=== PATIENT | male | born 1985 | race Caucasian/White ===

== ENCOUNTER 2017-12-25 02:16 | Observation (INO) | payer BC ==
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
[2017-12-25] MEDS ORDERED: SODIUM CHLORIDE 0.9% 1,000 ML IV ONE ×3 (02:51→03:53)
[2017-12-25 03:14] LABS: Appearance,Urine Clear (Clear); Bacteria,Urine Rare /hpf; Bilirubin,Urine Negative (Negative); Blood,Urine Moderate (Negative); Color,Urine Light Yellow; Glucose,Urine (UA) Negative (Negative); Ketones,Urine Trace (Negative); Leukocyte Esterase,Urine Negative (Negative); Nitrite,Urine Negative (Negative); Protein,Urine 1+ (Negative); RBC,Urine 10 /hpf (0-5); Specific Gravity,Urine 1.011 (1.001-1.035); Urobilinogen,Urine <2.0 mg/dL (<2.0); WBC,Urine 1 /hpf (0-5)
[2017-12-25 03:19] LABS: Basophils # (A) 0.1 k/uL (0-0.2); Basophils % (A) 1 %; Eosinophils # (A) 0.2 k/uL (0-0.7); Eosinophils % (A) 2 %; HCT 47.7 % (39.0-53.0); HGB 15.7 gm/dL (13.0-17.5); Lymphocytes # (A) 1.7 k/uL (1.0-4.8); Lymphocytes % (A) 23 %; MCH 30.2 pg (25.0-35.0); MCV 91.3 fL (80.0-100.0); Mean Platelet Volume 7.1; Monocytes # (A) 0.5 k/uL (0-1.0); Monocytes % (A) 7 %; Neutrophils # (A) 4.5 k/uL (1.3-7.7); Neutrophils % (A) 63 %; Platelet Count 218 k/uL (150-450); RBC 5.22 m/uL (4.30-5.90); RDW 12.9 % (11.5-15.5); WBC 7.1 k/uL (3.8-10.6)
[2017-12-25 03:24] LABS: ALT 40 U/L (21-72); AST 39 U/L (17-59); Acetaminophen <10.0 ug/mL; Albumin 4.4 g/dL (3.5-5.0); Alkaline Phosphatase 58 U/L (38-126); Anion Gap 12 mmol/L; Blood Urea Nitrogen 15 mg/dL (9-20); Calcium 8.8 mg/dL (8.4-10.2); Carbon Dioxide 20 mmol/L (22-30); Chloride 105 mmol/L (98-107); Glucose 109 mg/dL (74-99); Salicylate <1.0 mg/dL; Sodium 137 mmol/L (137-145); Total Bilirubin 1.3 mg/dL (0.2-1.3); Total Protein 7.7 g/dL (6.3-8.2)
[2017-12-25 03:24] LABS: Amphetamine Screen,Urine Not Detected (NotDetected); Barbiturate Screen,Urine Not Detected (NotDetected); Benzodiazepines Screen,Urine Not Detected (NotDetected); Cocaine Screen,Urine Not Detected (NotDetected); Methadone Screen, Urine Not Detected (NotDetected); Opiate Screen,Urine Not Detected (NotDetected); Oxycodone Screen, Urine Not Detected (NotDetected); Phencyclidine Screen,Urine Not Detected (NotDetected); Tricyclic Antidepressant,Urine Not Detected (NotDetected); Urn Cannabinoid Scrn Not Detected (NotDetected)
[2017-12-25 03:25] LABS: Potassium 4.5 mmol/L (3.5-5.1)
--- NOTE | 2017-12-25 03:33 | XR ---
EXAMINATION TYPE: XR chest 2V DATE OF EXAM: 12/25/2017 COMPARISON: NONE HISTORY: Altered mental status TECHNIQUE: Frontal and lateral views of the chest are obtained. FINDINGS: Heart and mediastinum are normal. Lungs are clear. Diaphragm is normal. Bony thorax is int act. There are chest leads. IMPRESSION: Normal chest.
--- NOTE | 2017-12-25 03:47 | CT ---
EXAMINATION TYPE: CT brain wo con DATE OF EXAM: 12/25/2017 COMPARISON: None HISTORY: AMS CT DLP: 1117.80 mGycm. Automated Exposure Control for Dose Reduction was Utilized. TECHNIQUE: CT scan of the head is performed without contrast. Ventricles of normal size. There is no mass effect nor midline shift. There is no sign of intracrania l hemorrhage. The calvarium is intact. IMPRESSION: Negative head CT scan.
[2017-12-25] MEDS ORDERED: NALOXONE 0.4 MG/ML 1 ML VIAL IV PRN (03:56)
[2017-12-25] MEDS ORDERED: levETIRAcetam IV 1,000 MG in SALINE 1 100ML.BAG IVPB STA (03:59)
[2017-12-25] MEDS ORDERED: LORazepam 2 MG/ML INJ IV PRN (03:59)
[2017-12-25] MEDS: SODIUM CHLORIDE 0.9% 1,000 ML IV SCH ×5 (04:26→17:10)
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
[2017-12-25 15:37] VITALS: BMI 25.8
--- NOTE | 2017-12-25 16:08 | P.HPIM ---
History of Present Illness 32-year-old gentleman came in for possible seizure-like activity patient had couple drinks outside came home and went upstairs and family heard a fall after which the patient was found to be unresponsive with old eyes possible tongue biting no significant seizure-like activity. Patient was unresponsive throughout the him aside after he woke up patient appeared to be confused no history of seizures past CAT scan of the head did not show any significant abnormality patient is being admitted for possible seizures patient denied any recent drug use denying dysuria cough runny nose. Serum alcohol levels are 0 upon arrival to ER. Patient had altered mental status was given Versed by EMS. Patient is normal alert oriented 3 when I evaluated the patient although doesn't remember the episode family members were present at bedside was able to give me the detailed history patient appears to have had tongue bite no loss of bowel or bladder continence. EEG will be obtained neurology was consulted Review of Systems REVIEW OF SYSTEMS: CONSTITUTIONAL: No fever, no malaise, no fatigue. HEENT: No recent visual problems or hearing problems. Denied any sore throat. CARDIOVASCULAR: No chest pain, orthopnea, PND, no palpitations, no syncope. PULMONARY: No shortness of breath, no cough, no hemoptysis. GASTROINTESTINAL: No diarrhea, no nausea, no vomiting, no abdominal pain. Normoactive bowel sounds. NEUROLOGICAL: No headaches, no weakness, no numbness. Patient denied any aura- like symptoms before the seizure HEMATOLOGICAL: Denies any bleeding or petechiae. GENITOURINARY: Denies any burning micturition, frequency, or urgency. MUSCULOSKELETAL/RHEUMATOLOGICAL: Denies any joint pain, swelling, or any muscle pain. ENDOCRINE: Denies any polyuria or polydipsia. The rest of the 14-point review of systems is negative. Past Medical History Past Medical History: No Reported History History of Any Multi-Drug Resistant Organisms: None Reported Past Surgical History: No Surgical Hx Reported Past Psychological History: No Psychological Hx Reported, Unable to Obtain Smoking Status: Never smoker Past Alcohol Use History: Occasional Past Drug Use History: None Reported Medications and Allergies Home Medications Medication Instructions Recorded Confirmed Type No Known Home Medications 12/25/17 12/25/17 History Allergies Allergy/AdvReac Type Severity Reaction Status Date / Time No Known Allergies Allergy Verified 12/25/17 07:23 Physical Exam Vitals: Vital Signs Temp Pulse Pulse Resp BP BP Pulse Ox 12/25/17 15:43 98.0 F 98 20 130/80 98 12/25/17 11:00 86 17 92/62 95 12/25/17 10:00 90 16 106/55 92 L 12/25/17 07:34 101 H 18 107/66 96 12/25/17 06:07 98.4 F 103 H 14 115/76 93 L 12/25/17 06:00 107 H 16 105/63 94 L 12/25/17 05:00 28 H 126/71 97 12/25/17 04:19 98.0 F 20 98 12/25/17 04:00 109 H 22 140/78 98 12/25/17 03:00 114 H 22 124/75 100 12/25/17 02:37 111 H 20 124/75 100 12/25/17 02:31 97.6 F 111 H 18 124/75 95 Intake and Output 12/25/17 12/25/17 12/25/17 06:59 14:59 22:59 Output Total 675 1100 Balance -675 -1100 Output: Urine 675 1100 Other: # Voids 2 Weight 81.647 kg PHYSICAL EXAMINATION: GENERAL: The patient is alert and oriented x3, not in any acute distress. Well developed, well nourished. HEENT: Pupils are round and equally reacting to light. EOMI. No scleral icterus. No conjunctival pallor. Normocephalic, atraumatic. No pharyngeal erythema. No thyromegaly. CARDIOVASCULAR: S1 and S2 present. No murmurs, rubs, or gallops. PULMONARY: Chest is clear to auscultation, no wheezing or crackles. ABDOMEN: Soft, nontender, nondistended, normoactive bowel sounds. No palpable organomegaly. MUSCULOSKELETAL: No joint swelling or deformity. EXTREMITIES: No cyanosis, clubbing, or pedal edema. NEUROLOGICAL: Gross neurological examination did not reveal any focal deficits. SKIN: No rashes. Results CBC & Chem 7: 12/25/17 02:25 12/25/17 02:25 Labs: Abnormal Lab Results - Last 24 Hours (Table) 12/25/17 12/25/17 12/25/17 Range/Units 02:25 02:25 02:40 Carbon Dioxide 20 L (22-30) mmol/L Glucose 109 H (74-99) mg/dL Plasma Lactic Acid [place] 6.2 H* (0.7-2.0) mmol/L Urine Protein 1+ H (Negative) Urine Ketones Trace H (Negative) Urine Blood Moderate H (Negative) Urine RBC 10 H (0-5) /hpf Urine Bacteria Rare H (None) /hpf Thrombosis Risk Factor Assmnt - Choose All That Apply Any of the Below Risk Factors Present?: No Other Risk Factors: No Other congenital or acquired thrombophilia - If yes, enter type in comment: No Thrombosis Risk Factor Assessment Level: Very Low Risk Assessment and Plan Plan: -Possibility of new onset seizure: Patient was started on Keppra in ER which will be continued and as needed Ativan. Patient will undergo EEG neurology was consulted seizure precautions neurochecks. -Lactic acidosis secondary to seizure continue with IV fluids repeated lactic acid is essentially within normal limits Sinus tachycardia improved now secondary to seizure
[2017-12-26] MEDS: SODIUM CHLORIDE 0.9% 1,000 ML IV SCH ×8 (00:20→22:00)
--- NOTE | 2017-12-26 10:00 | P.DS ---
Providers Date of admission: 12/25/17 04:00 Attending physician: Jane Jamison Consults: 12/25/17 03:58 Consult Physician Urgent Consulting Provider: Raphael Benedict Consult Reason/Comments: new seizure Do you want consulting provider notified?: Yes, Notify in am Primary care physician: Stated None Hospital Course: 33-year-old admitted for possible seizures patient will undergo EEG feces positive patient will go home on antiseizure medications. Once the EEG is done and neurology clears and patient will be discharged today. If EEG is negative probably will not require any antiseizure medications. No episodes of seizures here. Patient the wasn't a lot of stress which may have precipitated the present episode no history of seizures in the past. PHYSICAL EXAMINATION: GENERAL: The patient is alert and oriented x3, not in any acute distress. Well developed, well nourished. HEENT: Pupils are round and equally reacting to light. EOMI. No scleral icterus. No conjunctival pallor. Normocephalic, atraumatic. No pharyngeal erythema. No thyromegaly. CARDIOVASCULAR: S1 and S2 present. No murmurs, rubs, or gallops. PULMONARY: Chest is clear to auscultation, no wheezing or crackles. ABDOMEN: Soft, nontender, nondistended, normoactive bowel sounds. No palpable organomegaly. MUSCULOSKELETAL: No joint swelling or deformity. EXTREMITIES: No cyanosis, clubbing, or pedal edema. NEUROLOGICAL: Gross neurological examination did not reveal any focal deficits. SKIN: No rashes. For the chronic medical problems hospitalization course please refer to my HPI from yesterday Plan - Discharge Summary Discharge Rx Participant: Yes New Discharge Prescriptions: No Action No Known Home Medications Discharge Medication List No Known Home Medications 12/25/17 [History] Follow up Appointment(s)/Referral(s): Edmar Walters MD [REFERRING] - 1 Week (Unable to get through. Please call to schedule appointment) Discharge Disposition: HOME SELF-CARE
--- NOTE | 2017-12-26 16:58 | EEG ---
ELECTROENCEPHALOGRAM REPORT DATE OF SERVICE: 12/26/2017. REASON FOR TESTING: Seizure. DESCRIPTION OF THE PROCEDURE: This EEG was performed using a 21 channel digital electroencephalograph, following international 10-20 system. DESCRIPTION OF THE RECORDING: From the beginning of the tracing, with patient's eyes closed, the background rhythm was mostly consisting of 10 Hz alpha frequency in the posterior occipital leads. No obvious asymmetry is seen. Photic stimulation was performed with a good driving response seen. No pathological waves were elicited. Hyperventilation was not performed. Occasional movement and muscle artifacts are seen. The patient does reach stage II of sleep during the tracing and occasional sleep spindles are seen. No epileptiform discharges were seen. Occasional phase reversals are seen. Occasional dysregulation is noticed. His EKG lead showed a regular rate and rhythm. INTERPRETATION: This awake and asleep EEG is abnormal due to the presence of occasional dysregulation seen. There was also occasional phase reversal seen. These findings may be consistent with a reduced seizure threshold. No obvious generalized epileptic activity is seen. Clinical correlation is recommended. MMMARINA / AKBARN: [id number] /
[2017-12-26] MEDS: levETIRAcetam IV 750 MG in SODIUM CHLORIDE 0.9% 100 ML IVPB SCH (19:57)
[2017-12-27 08:29] VITALS: RESP 16; TEMP 97.7
[2017-12-27] MEDS: levETIRAcetam IV 750 MG in SODIUM CHLORIDE 0.9% 100 ML IVPB SCH (08:41)
[2017-12-27] MEDS: SODIUM CHLORIDE 0.9% 1,000 ML IV SCH (08:47)
--- NOTE | 2017-12-27 11:04 | P.DS ---
Providers Date of admission: 12/25/17 04:00 Attending physician: Jane Jamison Consults: 12/25/17 03:58 Consult Physician Urgent Consulting Provider: Raphael Benedict Consult Reason/Comments: new seizure Do you want consulting provider notified?: Yes, Notify in am Primary care physician: Stated None Hospital Course: Patient was admitted for possible seizure. Patient underwent EEG EEG yesterday which is inconclusive appears to have suppressed waveform of seizures patient is on Keppra at that time still on Keppra. Neurology is recommending another EEG today and antiseizure medication recommendations as per them. Patient will be discharged later today. PHYSICAL EXAMINATION: GENERAL: The patient is alert and oriented x3, not in any acute distress. Well developed, well nourished. HEENT: Pupils are round and equally reacting to light. EOMI. No scleral icterus. No conjunctival pallor. Normocephalic, atraumatic. No pharyngeal erythema. No thyromegaly. CARDIOVASCULAR: S1 and S2 present. No murmurs, rubs, or gallops. PULMONARY: Chest is clear to auscultation, no wheezing or crackles. ABDOMEN: Soft, nontender, nondistended, normoactive bowel sounds. No palpable organomegaly. MUSCULOSKELETAL: No joint swelling or deformity. EXTREMITIES: No cyanosis, clubbing, or pedal edema. NEUROLOGICAL: Gross neurological examination did not reveal any focal deficits. SKIN: No rashes. For rest of the other chronic medical problems hospitalization course please refer to my discharge summary from yesterday Plan - Discharge Summary Discharge Rx Participant: Yes New Discharge Prescriptions: No Action No Known Home Medications Discharge Medication List No Known Home Medications 12/25/17 [History] Follow up Appointment(s)/Referral(s): Raphael Benedict MD [STAFF PHYSICIAN] - 1 Week (Afternoon appointments after 2: 30 best for patient.) Edmar Walters MD [REFERRING] - 01/03/18 3:45 pm () Patient Instructions/Handouts: New-Onset Seizure in Adults (DC), Electroencephalogram (DC) Discharge Disposition: HOME SELF-CARE
[2017-12-27 12:34] VITALS: BP 113/69; PULSE 88
--- NOTE | 2017-12-27 18:55 | EEG ---
ELECTROENCEPHALOGRAM REPORT DATE OF SERVICE: 12/27/2017 REASON FOR TESTING: Seizure. CURRENT ANTIEPILEPTIC MEDICATION: Keppra. DESCRIPTION OF THE PROCEDURE: This EEG was performed using a 21-channel digital electroencephalograph, following international 10-20 system. DESCRIPTION OF THE RECORDING: From the beginning of the tracing, and with the patient's eyes closed, the background rhythm was mostly consisting of 9-10 Hz alpha frequency in the posterior occipital leads. No obvious asymmetry is seen. Photic stimulation was performed with a good driving response seen. No pathological waves were elicited. Hyperventilation was performed with a minimal buildup of amplitude seen. Again, no pathological waves were elicited. Rare movement artifacts are seen. The patient remains awake throughout the tracing. No epileptiform discharges were seen. His EKG lead showed a regular rate and rhythm. INTERPRETATION: This awake EEG can be considered within normal limits. There was no asymmetry seen. No epileptiform discharges were noticed. The absence of epileptiform discharges does not rule out the diagnosis of epilepsy; therefore clinical correlation is recommended. This EEG is improved when compared to his 12/26/2017 study. MMODL / IJN: [id number] /
== END 2017-12-27 14:50 | disposition home or self-care (01) ==
LOC: EC 02:16 → 3SCARD 04:00
PROVIDERS: ADMIT Hospitalist; ATTEND Hospitalist
DX: R56.9 Unspecified convulsions (principal); E87.2 Acidosis; R94.01 Abnormal electroencephalogram [EEG]; L60.0 Ingrowing nail
CPT/HCPCS: 96361 ×3; 96365; 96376 ×2; 99285; 36415; 95819; 95816; 93005; 80053; 83605; 85025; 81001; 80306; 83520 ×2; 71046; 70450; G0378 ×3; J1953 ×3